=== PATIENT | female | born 1930 | race Caucasian/White ===

== ENCOUNTER 2020-10-24 10:50 | Inpatient (IN) ==
[2020-10-24] MEDS ORDERED: Ketorolac 15 MG/ML VIAL IVP PRN ×2 (13:20→22:23)
[2020-10-24] MEDS ORDERED: Ondansetron 4 MG/2 ML VIAL IVP PRN ×4 (13:20→22:23)
[2020-10-24] MEDS ORDERED: Melatonin 3 MG TABLET PO PRN ×2 (13:20→22:23)
[2020-10-24] MEDS ORDERED: Naloxone 0.4 MG/ML INJ IVP PRN ×4 (13:20→22:23)
[2020-10-24] MEDS ORDERED: *HR* FentaNYL (PF) 100 MCG/2 ML VIAL IVP ONE (13:23)
[2020-10-24] MEDS ORDERED: *HR* Heparin 5,000 UNIT/ML VIAL SQ SCH (14:15)
[2020-10-24 15:44] LABS: Basophils % 0.3 %; Eosinophils % 0.3 %; Hematocrit 34.5 % (35.3-44.9); Hemoglobin 10.9 g/dL (11.5-15.4); Immature Granulocytes % 0.4 % (0-4); Lymphocytes % 9.6 %; Mean Corpuscular HGB Conc 31.6 g/dL (31.6-35.5); Mean Corpuscular Hemoglobin 29.1 pg (28.0-33.3); Mean Corpuscular Volume 92.2 fL (83.0-100.0); Mean Platelet Volume 11.3 fL (9.4-12.4); Monocytes # 0.8 K/mcL (0.0-1.3); Monocytes % 7.2 %; Neutrophils # 8.6 K/mcL (1.6-8.9); Platelet Count 180 K/mcL (140-400); Red Blood Count 3.74 M/mcL (3.82-4.97); Red Cell Distribution Width 14.6 % (11.5-14.5); Segmented Neutrophils % 82.2 %; White Blood Count 10.5 K/mcL (4.3-11.1)
[2020-10-24 15:51] LABS: INR 1.1; Prothrombin Time 12.7 Seconds (9.4-12.1)
[2020-10-24 16:04] LABS: Calcium 9.5 mg/dL (8.6-10.3); Magnesium 1.6 mg/dL (1.6-2.6); Potassium 4.1 mEq/L (3.5-5.1)
[2020-10-24] MEDS ORDERED: Lidocaine -MPF 2% 2 ML VIAL ONE (19:53)
[2020-10-24] MEDS ORDERED: *HR* Rocuronium Bromide 50 MG/5 ML VIAL ONE (19:53)
[2020-10-24] MEDS ORDERED: *HR* Propofol 200 MG/20 ML VIAL IVP ONE (19:53)
[2020-10-24] MEDS ORDERED: Lidocaine HCL 4 ML Topical Solution (Laryng-O-Jet Kit Sterile Pak) TP ONE (19:53)
[2020-10-24] MEDS ORDERED: *HR* FentaNYL (PF) 100 MCG/2 ML VIAL IVP PRN ×2 (19:55→22:23)
[2020-10-24] MEDS ORDERED: Albuterol 2.5 MG/3 ML NEBULIZER IH PRN ×2 (19:55→22:23)
[2020-10-24] MEDS ORDERED: Nitroglycerin 0.4 MG TAB.SUBL SL PRN ×2 (19:55→22:23)
[2020-10-24] MEDS ORDERED: Ondansetron 4 MG/2 ML VIAL ONE ×2 (20:56)
[2020-10-24] MEDS ORDERED: Neostigmine Methylsulfate 3 MG/3 ML SYRINGE ONE (20:58)
[2020-10-24] MEDS ORDERED: Acetaminophen IV 1,000 MG/100 ML BAG IVPB ONE (21:03)
[2020-10-24] MEDS ORDERED: *HR* HYDROcodone/Acet 5/325 mg TABLET PO PRN (21:53)
[2020-10-25] MEDS ORDERED: CeFAZolin 2 GM/120 ML BAG IVPB SCH (04:00)
[2020-10-25 05:11] LABS: Hematocrit 29.4 % (35.3-44.9); Mean Corpuscular HGB Conc 31.3 g/dL (31.6-35.5); Mean Corpuscular Hemoglobin 28.8 pg (28.0-33.3); Mean Corpuscular Volume 92.2 fL (83.0-100.0); Mean Platelet Volume 11.3 fL (9.4-12.4); Platelet Count 148 K/mcL (140-400); Red Blood Count 3.19 M/mcL (3.82-4.97); Red Cell Distribution Width 14.6 % (11.5-14.5); White Blood Count 9.5 K/mcL (4.3-11.1)
[2020-10-25 05:14] LABS: Hemoglobin 9.2 g/dL (11.5-15.4)
[2020-10-25 05:27] LABS: Calcium 8.9 mg/dL (8.6-10.3); Magnesium 1.6 mg/dL (1.6-2.6); Potassium 4.2 mEq/L (3.5-5.1)
[2020-10-25] MEDS: CeFAZolin 2 GM/120 ML BAG IVPB SCH ×2 (06:13→12:24)
[2020-10-25] MEDS: *HR* HYDROcodone/Acet 5/325 mg TABLET PO PRN ×2 (06:14→17:01)
[2020-10-25] MEDS: calcitrioL 0.25 MCG CAPSULE PO SCH (07:34)
[2020-10-25] MEDS: Aspirin Enteric Coated 81 MG Tablet PO SCH (07:34)
[2020-10-25] MEDS: Furosemide 20 MG TABLET PO SCH (07:35)
[2020-10-25] MEDS: allopurinoL 100 MG TABLET PO SCH (07:35)
[2020-10-25] MEDS ORDERED: allopurinoL 100 MG TABLET PO SCH (09:00)
[2020-10-25] MEDS ORDERED: Aspirin Enteric Coated 81 MG Tablet PO SCH (09:00)
[2020-10-25] MEDS ORDERED: calcitrioL 0.25 MCG CAPSULE PO SCH (09:00)
[2020-10-25] MEDS ORDERED: Furosemide 40 MG TABLET PO SCH (09:00)
[2020-10-25] MEDS: Multivit/Ca/Min/Fe/FA 1 TAB TABLET PO SCH (09:06)
[2020-10-25] MEDS ORDERED: *HR* Rivaroxaban 10 MG TABLET PO SCH ×2 (17:00)
[2020-10-26 03:22] LABS: Hematocrit 28.9 % (35.3-44.9); Hemoglobin 9.4 g/dL (11.5-15.4); Mean Corpuscular HGB Conc 32.5 g/dL (31.6-35.5); Mean Corpuscular Hemoglobin 29.9 pg (28.0-33.3); Mean Platelet Volume 11.3 fL (9.4-12.4); Platelet Count 162 K/mcL (140-400); Red Blood Count 3.14 M/mcL (3.82-4.97); Red Cell Distribution Width 14.4 % (11.5-14.5); White Blood Count 10.4 K/mcL (4.3-11.1)
[2020-10-26 03:44] LABS: Calcium 8.9 mg/dL (8.6-10.3); Magnesium 2.6 mg/dL (1.6-2.6); Phosphorous 4.1 mg/dL (2.7-4.5); Potassium 4.4 mEq/L (3.5-5.1)
[2020-10-26 04:08] LABS: Folate > 22.3 ng/mL (3.0-16.0); Vitamin B12 287 pg/mL (250-1100)
[2020-10-26] MEDS: Aspirin Enteric Coated 81 MG Tablet PO SCH (07:36)
[2020-10-26] MEDS: allopurinoL 100 MG TABLET PO SCH (07:37)
[2020-10-26] MEDS: calcitrioL 0.25 MCG CAPSULE PO SCH (07:37)
[2020-10-26] MEDS: Furosemide 20 MG TABLET PO SCH (07:37)
[2020-10-26] MEDS: Multivit/Ca/Min/Fe/FA 1 TAB TABLET PO SCH (07:37)
[2020-10-26] MEDS ORDERED: 0.9 % Sodium Chloride 500 ML IVC ONE (13:49)
[2020-10-26] MEDS ORDERED: 0.9 % Sodium Chloride 1,000 ML IVC SCH (14:00)
[2020-10-26] MEDS ORDERED: Aspirin Enteric Coated 81 MG Tablet PO ONE (17:00)
[2020-10-27 03:20] LABS: Hematocrit 24.6 % (35.3-44.9); Mean Corpuscular HGB Conc 31.7 g/dL (31.6-35.5); Mean Corpuscular Hemoglobin 29.5 pg (28.0-33.3); Mean Corpuscular Volume 93.2 fL (83.0-100.0); Mean Platelet Volume 11.3 fL (9.4-12.4); Platelet Count 153 K/mcL (140-400); Red Blood Count 2.64 M/mcL (3.82-4.97); Red Cell Distribution Width 14.5 % (11.5-14.5)
[2020-10-27 03:22] LABS: Hemoglobin 7.8 g/dL (11.5-15.4)
[2020-10-27 03:32] LABS: Calcium 8.2 mg/dL (8.6-10.3); Magnesium 2.4 mg/dL (1.6-2.6); Phosphorous 4.6 mg/dL (2.7-4.5)
[2020-10-27] MEDS: calcitrioL 0.25 MCG CAPSULE PO SCH (08:40)
[2020-10-27] MEDS: Multivit/Ca/Min/Fe/FA 1 TAB TABLET PO SCH (08:40)
[2020-10-27] MEDS: allopurinoL 100 MG TABLET PO SCH (08:40)
[2020-10-27] MEDS: 0.9 % Sodium Chloride 1,000 ML IVC SCH (11:07)
[2020-10-27 11:33] LABS: Hematocrit 28.3 % (35.3-44.9); Hemoglobin 8.9 g/dL (11.5-15.4)
[2020-10-27] MEDS ORDERED: 0.9 % Sodium Chloride 1,000 ML IVC SCH (12:15)
[2020-10-27] MEDS: Aspirin 325 MG TABLET PO SCH (14:00)
[2020-10-27] MEDS ORDERED: Aspirin Enteric Coated 325 MG Tablet PO SCH (17:00)
[2020-10-27 17:45] LABS: Bilirubin,Urine Negative (Negative); Blood,Urine Negative (Negative); Clarity,Urine Clear (Clear); Color,Urine Yellow (Yellow); Glucose,Urine (UA) Normal (Normal); Ketones,Urine Negative (Negative); Leukocyte Esterase,Urine Negative (Negative); Nitrite,Urine Negative (Negative); PH,Urine 5.5 pH Units (5.0-8.0); Protein,Urine Negative (Neg-Trace); Specific Gravity,Urine 1.025 (1.010-1.025); Urobilinogen,Urine Normal (Normal)
[2020-10-28] MEDS: 0.9 % Sodium Chloride 1,000 ML IVC SCH (05:29)
[2020-10-28] MEDS: *HR* HYDROcodone/Acet 5/325 mg TABLET PO PRN ×2 (05:32→18:22)
[2020-10-28 06:18] LABS: Hematocrit 23.6 % (35.3-44.9); Hemoglobin 7.8 g/dL (11.5-15.4); Mean Corpuscular HGB Conc 33.1 g/dL (31.6-35.5); Mean Corpuscular Hemoglobin 30.2 pg (28.0-33.3); Mean Corpuscular Volume 91.5 fL (83.0-100.0); Mean Platelet Volume 11.2 fL (9.4-12.4); Platelet Count 195 K/mcL (140-400); Red Blood Count 2.58 M/mcL (3.82-4.97); Red Cell Distribution Width 14.2 % (11.5-14.5); White Blood Count 5.7 K/mcL (4.3-11.1)
[2020-10-28 06:39] LABS: Calcium 8.1 mg/dL (8.6-10.3); Magnesium 2.3 mg/dL (1.6-2.6); Phosphorous 4.2 mg/dL (2.7-4.5); Potassium 4.7 mEq/L (3.5-5.1)
[2020-10-28] MEDS: Multivit/Ca/Min/Fe/FA 1 TAB TABLET PO SCH (08:42)
[2020-10-28] MEDS: calcitrioL 0.25 MCG CAPSULE PO SCH (08:42)
[2020-10-28] MEDS: Aspirin 325 MG TABLET PO SCH (08:43)
[2020-10-28] MEDS: allopurinoL 100 MG TABLET PO SCH (08:43)
[2020-10-28 08:55] LABS: Hematocrit 23.6 % (35.3-44.9); Hemoglobin 7.5 g/dL (11.5-15.4)
[2020-10-28 09:27] LABS: Sodium, Urine 24.5 mEq/L
[2020-10-28] MEDS: Sodium Bicarbonate 50 MEQ in 0.45 % Sodium Chloride 1,000 ML IVC SCH (14:43)
[2020-10-29] MEDS: *HR* HYDROcodone/Acet 5/325 mg TABLET PO PRN ×3 (06:02→19:01)
[2020-10-29] MEDS: Sodium Bicarbonate 50 MEQ in 0.45 % Sodium Chloride 1,000 ML IVC SCH (10:12)
[2020-10-29] MEDS: Aspirin 325 MG TABLET PO SCH (10:14)
[2020-10-29] MEDS: Multivit/Ca/Min/Fe/FA 1 TAB TABLET PO SCH (10:14)
[2020-10-29] MEDS: calcitrioL 0.25 MCG CAPSULE PO SCH (10:15)
[2020-10-29] MEDS: allopurinoL 100 MG TABLET PO SCH (10:15)
[2020-10-29 11:09] LABS: Hematocrit 27.7 % (35.3-44.9); Hemoglobin 9.2 g/dL (11.5-15.4)
[2020-10-29] MEDS ORDERED: Cyanocobalamin (B-12) 1,000 MCG/ML VIAL SQ ONE (11:22)
[2020-10-29 11:30] LABS: Albumin 3.5 g/dL (3.5-5.7); Calcium 8.9 mg/dL (8.6-10.3); Phosphorous 3.1 mg/dL (2.7-4.5); Potassium 4.3 mEq/L (3.5-5.1)
[2020-10-30 08:28] LABS: Calcium 8.9 mg/dL (8.6-10.3); Potassium 4.2 mEq/L (3.5-5.1)
[2020-10-30] MEDS: Aspirin 325 MG TABLET PO SCH (09:08)
[2020-10-30] MEDS: calcitrioL 0.25 MCG CAPSULE PO SCH (09:08)
[2020-10-30] MEDS: Sodium Bicarbonate 50 MEQ in 0.45 % Sodium Chloride 1,000 ML IVC SCH (09:08)
[2020-10-30] MEDS: allopurinoL 100 MG TABLET PO SCH (09:09)
[2020-10-30] MEDS: Multivit/Ca/Min/Fe/FA 1 TAB TABLET PO SCH (09:09)
[2020-10-30 13:34] LABS: Basophils % 0.3 %; Eosinophils # 0.3 K/mcL (0.0-0.6); Eosinophils % 3.1 %; Hematocrit 28.3 % (35.3-44.9); Hemoglobin 9.1 g/dL (11.5-15.4); Immature Granulocytes % 0.4 % (0-4); Lymphocytes # 1.1 K/mcL (0.6-4.6); Lymphocytes % 11.6 %; Mean Corpuscular HGB Conc 32.2 g/dL (31.6-35.5); Mean Corpuscular Hemoglobin 29.7 pg (28.0-33.3); Mean Corpuscular Volume 92.5 fL (83.0-100.0); Mean Platelet Volume 10.5 fL (9.4-12.4); Monocytes # 0.8 K/mcL (0.0-1.3); Monocytes % 8.4 %; Neutrophils # 7.4 K/mcL (1.6-8.9); Platelet Count 321 K/mcL (140-400); Red Blood Count 3.06 M/mcL (3.82-4.97); Red Cell Distribution Width 14.6 % (11.5-14.5); Segmented Neutrophils % 76.2 %; White Blood Count 9.7 K/mcL (4.3-11.1)
[2020-10-30 14:51] LABS: Influenza A PCR Negative (Negative); Influenza B PCR Negative (Negative); Resp. Syncytial Virus PCR Negative (Negative)
[2020-10-30 15:32] LABS: SARS-CoV-2 by PCR (In House) Negative (Negative)
[2020-10-30 16:32] VITALS: BP 161/71; PULSE 102; TEMP 97.8; O2SAT 95
== END 2020-10-30 17:50 | disposition other institution (70) | DRG 480 ==
LOC: 3NENU → SUATTDRO 13:20
PROVIDERS: ADMIT Internal Medicine; ATTEND Internal Medicine

== ENCOUNTER 2020-12-30 10:01 | Inpatient (IN) ==
[2020-12-30] MEDS ORDERED: Naloxone 0.4 MG/ML INJ IVP PRN (12:07)
[2020-12-30] MEDS ORDERED: *HR* Heparin 5,000 UNIT/ML VIAL IVP PRN ×2 (12:09)
[2020-12-30] MEDS ORDERED: Furosemide 40 MG/4 ML VIAL IVP ONE (12:21)
[2020-12-30] MEDS ORDERED: Ipratropium/Albuterol Neb 3 ML IH ONE (12:23)
[2020-12-30] MEDS: DilTIAZem 50 MG/50 ML IV.SOLN IVC SCH ×3 (12:58→22:07)
[2020-12-30] MEDS: Heparin 25,000UNIT/250ML 1/2NS 25,000 UNIT/250 ML IV.SOLN IVC SCH (14:25)
[2020-12-30] MEDS ORDERED: Acetaminophen 325 MG TABLET PO PRN (14:56)
[2020-12-30] MEDS ORDERED: Perflutren Lipid Microsphere 1.3 ML in 0.9 % Sodium Chloride 8.7 ML IVP PRN (15:13)
[2020-12-30 16:48] LABS: Bacteria,Urine Few per hpf (None-Few); Bilirubin,Urine Negative (Negative); Blood,Urine Large (Negative); Clarity,Urine Clear (Clear); Color,Urine Light-Yellow (Yellow); Glucose,Urine (UA) Normal (Normal); Hyaline Casts,Urine Moderate per lpf (None Seen); Ketones,Urine Negative (Negative); Leukocyte Esterase,Urine Moderate (Negative); Mucus,Urine Few per lpf (None-Few); Nitrite,Urine Negative (Negative); PH,Urine 5.5 pH Units (5.0-8.0); Protein,Urine Negative (Neg-Trace); RBC,Urine TNTC per hpf (0-3); Specific Gravity,Urine 1.009 (1.010-1.025); Squamous Epithelial Cell,Urine Few per hpf (None-Few); Urobilinogen,Urine Normal (Normal)
[2020-12-31] MEDS: 0.9 % Sodium Chloride 500 ML IVC PRN ×2 (00:48→03:25)
[2020-12-31] MEDS: Heparin 25,000UNIT/250ML 1/2NS 25,000 UNIT/250 ML IV.SOLN IVC SCH (00:49)
[2020-12-31] MEDS ORDERED: 0.9 % Sodium Chloride 500 ML IVC PRN ×3 (03:10→06:12)
[2020-12-31] MEDS ORDERED: *HR* Metoprolol 5 MG/5 ML VIAL IVP ONE (03:11)
[2020-12-31] MEDS ORDERED: Amiodarone Premix 360 MG/200 ML BAG IVC ONE (04:05)
[2020-12-31] MEDS ORDERED: Amiodarone Premix 150 MG/100 ML BAG IVPB ONE (04:05)
[2020-12-31 04:33] LABS: Basophils # 0.1 K/mcL (0.0-0.2); Basophils % 0.3 %; Calcium 7.7 mg/dL (8.6-10.3); Eosinophils % 0.2 %; Hematocrit 27.4 % (35.3-44.9); Hemoglobin 9.2 g/dL (11.5-15.4); Immature Granulocytes % 0.8 % (0-4); Lymphocytes # 1.9 K/mcL (0.6-4.6); Lymphocytes % 9.5 %; Mean Corpuscular HGB Conc 33.6 g/dL (31.6-35.5); Mean Corpuscular Hemoglobin 28.4 pg (28.0-33.3); Mean Corpuscular Volume 84.6 fL (83.0-100.0); Mean Platelet Volume 10.3 fL (9.4-12.4); Monocytes # 0.9 K/mcL (0.0-1.3); Monocytes % 4.8 %; Neutrophils # 16.4 K/mcL (1.6-8.9); Platelet Count 527 K/mcL (140-400); Potassium 3.6 mEq/L (3.5-5.1); Red Blood Count 3.24 M/mcL (3.82-4.97); Red Cell Distribution Width 16.7 % (11.5-14.5); Segmented Neutrophils % 84.4 %; White Blood Count 19.4 K/mcL (4.3-11.1)
[2020-12-31 04:46] LABS: Thyroid Stimulating Hormone 1.249 mcIU/mL (0.340-5.600)
[2020-12-31 05:09] LABS: Albumin 2.4 g/dL (3.5-5.7); Albumin/Globulin Ratio 0.9 (1.1-2.2); Bilirubin,Direct 0.3 mg/dL (0.0-0.2); Bilirubin,Indirect 0.3 mg/dL (0.0-1.0); Bilirubin,Total 0.6 mg/dL (0.3-1.0); Globulin 2.6 g/dL (2.4-3.5)
[2020-12-31] MEDS ORDERED: Apixaban 5 MG TABLET PO SCH (06:00)
[2020-12-31] MEDS: Amiodarone Premix 360 MG/200 ML BAG IVC SCH ×2 (10:16→22:30)
[2020-12-31] MEDS: cefTRIAXone 1,000 MG in Water for inj. (sterile) 10 ML IVP SCH (10:17)
[2020-12-31] MEDS ORDERED: *HR* LORazepam 0.5 MG TABLET PO PRN (12:52)
[2020-12-31] MEDS: Apixaban 5 MG TABLET PO SCH (18:15)
[2020-12-31] MEDS: Aspirin Enteric Coated 81 MG Tablet PO SCH (20:15)
[2021-01-01] MEDS ORDERED: *HR* LORazepam 2 MG/ML VIAL IVP ONE (04:19)
[2021-01-01] MEDS ORDERED: Haloperidol Lactate 5 MG/ML VIAL IVP ONE (06:01)
[2021-01-01] MEDS: Apixaban 5 MG TABLET PO SCH ×2 (10:03→16:35)
[2021-01-01] MEDS: calcitrioL 0.25 MCG CAPSULE PO SCH (10:04)
[2021-01-01] MEDS: Aspirin Enteric Coated 81 MG Tablet PO SCH ×2 (10:04→22:02)
[2021-01-01] MEDS: allopurinoL 100 MG TABLET PO SCH (10:04)
[2021-01-01] MEDS: *HR* Digoxin 0.5 MG/2 ML AMPUL IVP SCH ×2 (10:47→17:21)
[2021-01-01] MEDS: QUEtiapine Fumarate 25 MG TABLET PO SCH ×2 (10:47→22:02)
[2021-01-01 10:49] LABS: Calcium 8.6 mg/dL (8.6-10.3); Potassium 3.4 mEq/L (3.5-5.1)
[2021-01-01] MEDS: cefTRIAXone 1,000 MG in Water for inj. (sterile) 10 ML IVP SCH (10:58)
[2021-01-01 11:06] LABS: Basophils % 0.1 %; Red Cell Distribution Width 17.2 % (11.5-14.5)
[2021-01-01 11:08] LABS: Hematocrit 32.6 % (35.3-44.9); Hemoglobin 10.6 g/dL (11.5-15.4); Lymphocytes # 1.6 K/mcL (0.6-4.6); Lymphocytes % 5.3 %; Mean Corpuscular HGB Conc 32.5 g/dL (31.6-35.5); Mean Corpuscular Hemoglobin 27.8 pg (28.0-33.3); Mean Corpuscular Volume 85.6 fL (83.0-100.0); Mean Platelet Volume 10.3 fL (9.4-12.4); Monocytes # 1.6 K/mcL (0.0-1.3); Monocytes % 5.5 %; Neutrophils # 26.1 K/mcL (1.6-8.9); Platelet Count 764 K/mcL (140-400); Red Blood Count 3.81 M/mcL (3.82-4.97); Segmented Neutrophils % 88.1 %; White Blood Count 29.6 K/mcL (4.3-11.1)
[2021-01-01 12:03] LABS: Platelet Estimate Increased (Normal); Toxic Granulation Present (Not Present)
[2021-01-01] MEDS: Amiodarone Premix 360 MG/200 ML BAG IVC SCH (20:53)
[2021-01-02] MEDS: *HR* Digoxin 0.5 MG/2 ML AMPUL IVP SCH (01:00)
[2021-01-02] MEDS: Apixaban 5 MG TABLET PO SCH ×2 (06:45→18:12)
[2021-01-02] MEDS: calcitrioL 0.25 MCG CAPSULE PO SCH (07:45)
[2021-01-02] MEDS: allopurinoL 100 MG TABLET PO SCH (07:45)
[2021-01-02] MEDS: QUEtiapine Fumarate 25 MG TABLET PO SCH (07:45)
[2021-01-02] MEDS: Aspirin Enteric Coated 81 MG Tablet PO SCH (07:45)
[2021-01-02] MEDS: cefTRIAXone 1,000 MG in Water for inj. (sterile) 10 ML IVP SCH (07:45)
[2021-01-02] MEDS: Amiodarone Premix 360 MG/200 ML BAG IVC SCH (09:28)
[2021-01-02] MEDS ORDERED: Amiodarone Premix 150 MG/100 ML BAG IVPB ONE (09:43)
[2021-01-02] MEDS ORDERED: *HR* LORazepam Oral Conc 2 MG/ML SL PRN (12:20)
[2021-01-02] MEDS: Haloperidol Oral Conc 10 MG/5 ML UDC PO SCH ×2 (14:12→21:36)
[2021-01-03] MEDS: Haloperidol Oral Conc 10 MG/5 ML UDC PO SCH ×3 (00:13→12:32)
[2021-01-03] MEDS: DilTIAZem 50 MG/50 ML IV.SOLN IVC SCH (03:19)
[2021-01-03] MEDS: Apixaban 5 MG TABLET PO SCH ×2 (06:33→20:20)
[2021-01-03 11:38] VITALS: O2SAT 96
[2021-01-03 11:49] VITALS: BP 98/64; PULSE 94; TEMP 97.9
[2021-01-03 12:53] LABS: Influenza A PCR Negative (Negative); Influenza B PCR Negative (Negative); Resp. Syncytial Virus PCR Negative (Negative)
[2021-01-03 12:54] LABS: SARS-CoV-2 by PCR (In House) Negative (Negative)
== END 2021-01-03 19:45 | DRG 871 ==
LOC: CDU → SUATTDRO 01-01 08:20
PROVIDERS: ADMIT Internal Medicine; ATTEND Internal Medicine